=== PATIENT | female | born 1950 | race Caucasian/White ===

== ENCOUNTER 2016-12-30 07:54 | Observation (INO) | payer MEDICARE, BC ==
[~2016-12-30] VITALS: Ht 162.6 cm; Wt 79.6 kg
[~2016-12-30 07:54] MED LIST: AMLO5TAB2 PO; ASPI-110 PO; CLON0.5T PO; DULA0.5I SQ; HYDR25TA5 PO; METF500T PO; OMEGCAP PO; OMEP40CA2 PO; VYTO10TA27 PO; WELC625T2 PO
[2016-12-30] MEDS ORDERED: APREPITANT 40 MG CAP PO SCH (08:30)
[2016-12-30] MEDS ORDERED: VANCOMYCIN HCL 1000 MG ON-CALL/NS 250 ML IV SCH ×2 (08:30)
[2016-12-30] MEDS ORDERED: CLON1TAB PO (08:48)
[2016-12-30] MEDS ORDERED: CETI10CA3 PO (08:52)
[2016-12-30 08:54] VITALS: BP 147/80; PULSE 80; RESP 16; TEMP 98.1; O2SAT 98
[2016-12-30] MEDS ORDERED: DEXAMETHASONE SOD PHOS 4 MG/ML VIAL ONE (09:40)
[2016-12-30] MEDS ORDERED: SCOPOLAMINE 1.5 MG PATCH ONE (09:40)
[2016-12-30] MEDS ORDERED: MIDAZOLAM HCL 2 MG/2 ML VIAL ONE (09:40)
[2016-12-30] MEDS ORDERED: FAMOTIDINE 20 MG/2 ML VIAL ONE (09:40)
[2016-12-30] MEDS ORDERED: ACETAMINOPHEN 1000 MG/100 ML VIAL IV ONE (09:41)
[2016-12-30] MEDS ORDERED: fentaNYL CITRATE 250 MCG/5 ML AMP ONE (09:42)
[2016-12-30] MEDS ORDERED: ARTIFICIAL TEARS OPTH OINT 3.5 APPLIC/3.5 GM TUBO ONE (09:42)
[2016-12-30] MEDS ORDERED: POVIDONE IODINE 5% (ANTISEPSIS KIT) 4 APPLICATIONS EACH NARE PRN (09:45)
[2016-12-30] MEDS ORDERED: LACTATED RINGER'S 1000 ML IV PRN (09:45)
[2016-12-30] MEDS ORDERED: CHLORHEXIDINE GLUCONATE 2 % 1 PACK (2 CLOTHS) TOPICAL PRN (09:45)
[2016-12-30] MEDS ORDERED: SODIUM CHLORID 0.9% 500 ML IV PRN (09:45)
[2016-12-30] MEDS ORDERED: INSULIN HUMAN REGULAR 1,000 UNITS/10 ML VIAL SQ PRN (09:45)
[2016-12-30] MEDS ORDERED: METOPROLOL TARTRATE 25 MG TAB PO PRN (09:45)
[2016-12-30] MEDS ORDERED: BUPIVACAINE/EPINEPHRINE 0.25% PF 30 ML VIAL INFIL ONE ×2 (10:17)
[2016-12-30] MEDS ORDERED: PROPOFOL 200 MG/20 ML AMP IV ONE (11:32)
[2016-12-30] MEDS ORDERED: ONDANSETRON HCL 4 MG/2 ML VIAL IV PUSH ONE (11:33)
[2016-12-30] MEDS ORDERED: NEOSTIGMINE 3 MG/3 ML SYR IV ONE (11:33)
[2016-12-30] MEDS ORDERED: LACTATED RINGER'S 1000 ML INJ 1,000 ML IV ONE (11:33)
[2016-12-30] MEDS ORDERED: DO NOT ADM ANY ANTICOAGULANT DRUGS PRN (12:18)
--- NOTE | 2016-12-30 12:33 | PD.OP ---
Operative Report Date of Surgery: Dec 30, 2016 Preoperative Diagnosis: Hiatal hernia, GERD, desire for Linx [facility] Postoperative Diagnosis: same Procedure: laparoscopic repair HH with Sukumar fundoplication open repair [facility]. Anesthesia: general Surgeon: Jameson Rose Rn Social Work(s): MD Madelyn Ernst, MS3 Operation and Findings: small hiatal hernia, decision not to place Linx due to posterior longitudinal muscle tear. Intra operative zarate Dr Mike English recommended against Linx placement. 360 degree fundoplication over 50 lithuanian bougie.\ EBL less than 5 ml. Jameson Rose MD Dec 30, 2016 12:33
[2016-12-30] MEDS ORDERED: MORPHINE SULFATE 8 MG/ML INJ IV PUSH PRN (12:45)
[2016-12-30] MEDS ORDERED: [UNRECOGNIZED DRUG - OTHER] SQ SCH (12:45)
[2016-12-30] MEDS ORDERED: Post-op Orders (for Pharmacy) MISC XX ONE (12:45)
[2016-12-30] MEDS ORDERED: DULAGLUTIDE 1.5 MG SQ SCH (12:45)
[2016-12-30] MEDS ORDERED: ACETAMINOPHEN/HYDROcodone 325 MG/5 MG TAB PO PRN (12:45)
[2016-12-30] MEDS ORDERED: ONDANSETRON HCL 4 MG/2 ML VIAL IV PRN (12:45)
[2016-12-30] MEDS ORDERED: clonazePAM 1 MG TAB PO PRN (12:45)
[2016-12-30] MEDS ORDERED: SODIUM CHLORIDE 0.9% FLUSH 10 ML FLUSH IV FLUSH PRN (12:45)
--- NOTE | 2016-12-30 13:21 | TN ---
cc: TOMASZ VALDEZ M.D. DATE OF SURGERY: 12/30/2016 PREOPERATIVE DIAGNOSIS Hiatal hernia, gastroesophageal reflux disease, desire for Linx in the umbilical hernia. POSTOPERATIVE DIAGNOSIS Hiatal hernia, gastroesophageal reflux disease, desire for Linx in the umbilical hernia. PROCEDURE Laparoscopic repair of hiatal hernia with Sukumar fundoplication, open repair umbilical hernia. SURGEON Dr. Tomasz Valdez. TIMBER RIDER Dr. Burt Turner. SECOND TIMBER RIDER Madelyn Mcmahon, MS III ANESTHESIA General. INDICATIONS This is a very pleasant 66-year-old woman who initially presented to me with umbilical hernia. She on discussion was found to have acid reflux disease. She was desirous of potential surgical correction of her reflux. She underwent extensive preoperative workup and was found to have significantly abnormal DeMeester scores, a moderate to large hiatal hernia and no evidence of esophageal motility. The patient had a desire for Linx placement. She was felt to be a candidate. INTRAOPERATIVE FINDINGS Relatively small hiatal hernia with three balls of fat adjacent to the stomach, stuck up into the mediastinum. These were removed, excised and discarded. A hiatal hernia defect was primarily repaired. Attempts at identifying the posterior vagus resulted in longitudinal muscular injury and therefore the intraoperative Duque, Dr. Mike English recommended against placement of Linx. A 360 degree fundoplication was therefore performed over a 50-Zimbabwean bougie. Estimated blood loss was minimal. Umbilical hernia defect which was about 2 cm in size was approximated primarily with suture. DESCRIPTION OF PROCEDURE IN DETAIL The patient was identified as Ami Alvarez, taken to the operating room and placed in the supine position. Sequential compression devices were placed on bilateral lower extremities. Following induction of adequate general endotracheal anesthesia, the patient's abdomen was prepped and draped in usual sterile fashion with Chloraprep. Time-out procedure was performed. Following completion of time-out procedure to everyone's satisfaction within the room, local anesthetic was infiltrated in and around the umbilicus. A supraumbilical transverse incision about 3 cm in length was carried out with a scalpel. Dissection continued posteriorly to the umbilical hernia defect which was entered with the surgeon's finger allowing for entry into the peritoneal cavity. The applied medical balloon Sravanthi trocar was placed in the peritoneal cavity, its balloon inflated with C02 insufflation until a level of 15 mmHg ensued. The patient was placed in a steep reverse Trendelenburg position and four upper abdominal 5 mm trocars were placed in the peritoneal cavity under direct laparoscopic view after incision of skin with a scalpel. Through the right lateral 5 mm trocar the phil flex liver retractor was placed beneath a generous left lateral lobe of the liver retracting it anteriorly and held with a robot arm. The patient's skin was protected with a laparotomy pad. Attention was then turned to opening the gastrohepatic window. There was a high branch of the left gastric artery which was identified and avoided. The right diaphragmatic crura was able to be uncovered and fatty tissue was reduced from the hiatal hernia defect. Circumferential dissection allowed for identification of the left side diaphragmatic crura and reduction of more fatty tissue from the mediastinum. This was all amputated and tucked into the area of the gastrohepatic ligament for retrieval later which was performed with a Endo retriever bag. The superior short gastrics were taken down using the harmonic scalpel. This allowed for identification of the posterior window which was further developed using a phil flex melton's hook retractor and further opened. The GE junction was easily mobilized beneath the diaphragmatic crura. Diaphragmatic crura were approximated posteriorly with 2-0 Ethibond sutures placed using the [place] suture acute care assistant device. Attention was then turned to identification of the posterior vagus nerve. It was felt to be identified and a window was created posteriorly. The sizing instrument for the Linx was then passed behind the esophagus and multiple times sized. It was removed to further delineate the posterior vagus and on further evaluation detailed and with the assistance of the Duque the posterior vagus nerve could not be reliably identified. In doing so several strands of longitudinal muscle had been divided. There was certainly no full-thickness injury to the esophagus, in fact this was very superficial. The Duque recommended against placement of the Linx and therefore attention was turned to taking down further short gastrics to allow for a loose Sukumar fundoplication. One of the short gastric vessels were taken down using the harmonic scalpel. This allowed for pulling the fundus through the posterior window so that it was very loose. The nurse flat spring assembler then passed a bougie sequentially. Bougie passing was difficult due to the superior most suture placed in the diaphragmatic crura and it was therefore removed; 36, 40, 44, 48, and then 50-Zimbabwean bougies were able to be passed without difficulty at that time. A 50-Zimbabwean bougie was left in place and a 360 degree fundoplication was performed using 0-Ethibond sutures and the suture acute care assistant device. Two sutures were placed full-thickness fundus through anterior esophageal musculature and full thickness fundus, third suture was placed inferiorly with no purchase of the anterior esophageal musculature. The bougie was removed without difficulty. The superior crural suture was then replaced using a 0-Ethibond suture. Photographs were taken of completed repair. There was no tension on the diaphragm muscle or on the fundal wrap. Remaining local anesthetic was placed in the subdiaphragmatic position. The three balls of fat which had been excise were placed into an Endo retriever bag and removed through the umbilical port. The phil flex retractor was removed. There was no evidence of injury to liver. Brief survey of additional intra-abdominal contents demonstrated no abnormalities. 5 mm trocar was removed under direct visualization. There was no evidence of bleeding from trocar sites. The abdomen was desufflated through the umbilical port which was then removed. It is important to note that one of the 5 mm trocars was relocated for placement of the sizing instrument, so a fifth 5 mm incision had been created. Attention was then turned to excision of the umbilical hernia sac which was removed with the Metzenbaum scissors. The umbilical hernia defect was approximated with multiple interrupted inverted 0-Prolene sutures. The umbilicus was reformed in its normal inward projection using interrupted 2-0 Vicryl sutures. Skin incisions were approximated with 4-0 Monocryl subcuticular sutures. Dressings were applied, Mastisol, half-inch brown Steri-Strips, gauze and Tegaderm were placed over the umbilicus. The patient tolerated the procedure without apparent complication. Sponge, needle and instrument counts were correct at the end of the case. MD ALCIRA Florian/WALTER /12:32 PM /12:57 PM
[2016-12-30 14:35] VITALS: BP 128/69; PULSE 84; RESP 17; TEMP 98.5; O2SAT 94
[2016-12-30 16:00] VITALS: BP 128/67; PULSE 88; RESP 17; TEMP 97.7; O2SAT 93
[2016-12-30] MEDS: LACTATED RINGER'S 1000 ML INJ 1,000 ML IV SCH ×2 (16:24→22:33)
[2016-12-30] MEDS: metFORMIN HCL 500 MG TAB PO SCH (16:24)
[2016-12-30] MEDS: ACETAMINOPHEN 1000 MG/100 ML VIAL IV SCH ×2 (16:25→21:42)
--- NOTE | 2016-12-30 19:47 | EKG ---
Date Performed: 12/30/2016 Time Performed: 08:31:43 PTAGE: 66 years EKG: Sinus rhythm INCOMPLETE RIGHT BUNDLE BRANCH BLOCK NONSPECIFIC T-WAVE ABNORMALITY BORDERLINE ECG PREVIOUS TRACING : 01/17/1993 13.08 Since previous tracing, no significant change noted DOCTOR: Nara Conklin Interpretating Date/Time 12/30/2016 19:45:44
[2016-12-30 20:00] VITALS: BP 129/76; PULSE 86; RESP 19; TEMP 96; O2SAT 97
[2016-12-30] MEDS: SODIUM CHLORIDE 0.9% FLUSH 10 ML FLUSH IV FLUSH SCH (20:01)
[2016-12-30] MEDS: COLESEVELAM HCL 625 MG TAB PO SCH (20:01)
[2016-12-30] MEDS ORDERED: EZETIMIBE 10 MG TAB PO SCH (21:00)
[2016-12-30] MEDS ORDERED: NON-FORMULARY DRUG (Ezetimibe-Simvastatin (Vytorin) 1 TAB) PO SCH (21:00)
[2016-12-30] MEDS ORDERED: CETIRIZINE HCL 10 MG TAB PO SCH (21:00)
[2016-12-30] MEDS ORDERED: PRAVASTATIN SOD 20 MG TAB PO SCH (21:00)
[2016-12-30] MEDS: ACETAMINOPHEN/HYDROcodone 325 MG/5 MG TAB PO PRN (21:03)
[2016-12-31] VITALS: BP 108/60; PULSE 80; RESP 19; TEMP 96.1; O2SAT 93
[2016-12-31] MEDS: ACETAMINOPHEN 1000 MG/100 ML VIAL IV SCH (03:30)
[2016-12-31 04:00] VITALS: BP 111/60; PULSE 71; RESP 18; TEMP 96.7; O2SAT 92
[2016-12-31 08:00] VITALS: BP 125/74; PULSE 80; RESP 18; TEMP 96; O2SAT 93
[2016-12-31] MEDS ORDERED: HYDR-3533 PO (08:11)
--- NOTE | 2016-12-31 08:14 | HHI.DS ---
Discharge Summary Admission Date Dec 30, 2016 at 12:20 Discharge Date: Dec 31, 2016 Admitting Diagnosis Hiatal hernia, GERD, Procedures Lap repair HH, Sukumar fundoplication Brief History 66 year old with many years of GERD, found to have intestinal metaplasia, abnormal Demeester score, HH. Significant Findings small HH. Longitudinal muscle fiber tear, resulting in Sukumar instead of Linx. PE at Discharge Incisions all healing well, moderate ecchymosis at umbilicus. Hospital Course Pt admitted through [facility], taken to surgery, recovered well. Tolerating po liquids , no dysphagia, no GERD. Wants to go home. Pt Condition on Discharge: Good Discharge Disposition: Disch w/ Home Health Serv Discharge Instructions DIET: Follow Instructions for: Full Liquid Diet Additional Diet Instructions: up to mashed potato consistency, miore frequent smaller meals, nutritional supplements such as ensure, boost, or carnation instant breakfst as needed. Activities you can perform: Shower Only-No Bath Activities to Avoid: Driving for 24 hrs, Strenuous Activity Jameson Rose MD Dec 31, 2016 08:14
[2016-12-31] MEDS: LACTATED RINGER'S 1000 ML INJ 1,000 ML IV SCH (08:33)
[2016-12-31] MEDS: COLESEVELAM HCL 625 MG TAB PO SCH (08:57)
[2016-12-31] MEDS: metFORMIN HCL 500 MG TAB PO SCH (08:57)
[2016-12-31] MEDS: ACETAMINOPHEN/HYDROcodone 325 MG/5 MG TAB PO PRN (08:57)
[2016-12-31] MEDS: SODIUM CHLORIDE 0.9% FLUSH 10 ML FLUSH IV FLUSH SCH (09:00)
[2016-12-31] MEDS ORDERED: HYDROCHLOROTHIAZIDE 25 MG TAB PO SCH (09:00)
[2016-12-31] MEDS ORDERED: NON-FORMULARY DRUG (Fish Oil-Cholecalciferol (Omega-3 Fish Oil/Vitamin) 1 CAP) PO SCH (09:00)
[2016-12-31] MEDS ORDERED: amLODIPine BESYLATE 5 MG TAB PO SCH (09:00)
[2016-12-31] MEDS ORDERED: ASPIRIN EC 81 MG TABEC PO SCH (09:00)
== END 2016-12-31 10:24 | disposition home or self-care (01) ==
LOC: HSDC 07:54 → HSDI 12:20 → UNDOADMIN 12:20 → HSDI 12:20 → N07B 14:13 → HSDI 14:13
PROVIDERS: ADMIT Surgery Trauma Surgery; ATTEND Surgery Trauma Surgery
PROC: 0WQF0ZZ Repair Abdominal Wall, Open Approach (ICD-10-PCS; 2016-12-30)
PROC: 0BQS4ZZ (ICD-10-PCS; principal; 2016-12-30 09:56)
PROC: 0DV44ZZ Restriction of Esophagogastric Junction, Percutaneous Endoscopic Approach (ICD-10-PCS; 2016-12-30 09:56)
DX: K44.9 Diaphragmatic hernia without obstruction or gangrene (principal); K42.9 Umbilical hernia without obstruction or gangrene; K21.9 Gastro-esophageal reflux disease without esophagitis; I10 Essential (primary) hypertension; E11.9 Type 2 diabetes mellitus without complications; Z79.899 Other long term (current) drug therapy; Z79.84 Long term (current) use of oral hypoglycemic drugs; Z79.82 Long term (current) use of aspirin
CPT/HCPCS: 00790; 43281; 49585; 93005; 94150; G0378; J0131; J1100; J2250; J2405; J2710; J3010; J3370; J7050; J7120; J8501